=== PATIENT | female | born 1975 | race Hispanic/Latino ===

== ENCOUNTER 2016-10-03 11:34 | Outpatient (CLI) | payer BC ==
--- NOTE | 2016-10-03 14:54 | Cat Scan Report ---
CT scan of abdomen and pelvis with IV contrast: History: Right upper quadrant pain. Findings: Normal lung bases. No pleural pericardial effusion. Normal liver spleen and pancreas. Contracted thickwalled gallbladder. Normal adrenals and kidney parenchyma. Normal bladder. No free intraperitoneal fluid. No evidence of adenopathy. Normal aorta. Fluid filled loops of small bowel without distention or wall thickening or stranding. Gaseous colon with stool in colon. Impression: Thickwalled contracted gallbladder. Sonographic correlation may be recommended. Small bowel gas pattern is probably normal though possibility of enteritis cannot be excluded.
== END 2016-10-03 11:35 | disposition home or self-care (01) ==
LOC: CT 11:34
PROVIDERS: ATTEND Obstetrics & Gynecology
DX: R10.11 Right upper quadrant pain (principal); R19.5 Other fecal abnormalities; Z90.710 Acquired absence of both cervix and uterus
CPT/HCPCS: 74177; Q9967

== ENCOUNTER 2016-10-26 09:49 | Outpatient (CLI) | payer BC ==
--- NOTE | 2016-10-26 12:44 | Ultrasound Report ---
RIGHT UPPER QUADRANT ULTRASOUND: HISTORY: Right upper quadrant abdominal pain. Technique: Transabdominal ultrasound imaging with Doppler interrogation. FINDINGS: The gallbladder is sonolucent with no evidence of stones, polyps or wall thickening. The common duct is normal in caliber. Images of the liver parenchyma, pancreas, right kidney and aorta are within normal limits. No perihepatic ascites. IMPRESSION: Unremarkable right upper quadrant ultrasound.
== END 2016-10-26 09:50 | disposition home or self-care (01) ==
LOC: US 09:49
PROVIDERS: ATTEND Obstetrics & Gynecology
DX: R10.11 Right upper quadrant pain (principal); I10 Essential (primary) hypertension; E78.00 Pure hypercholesterolemia, unspecified; D64.9 Anemia, unspecified
CPT/HCPCS: 76705